=== PATIENT | male | born 1955 | race Caucasian/White ===

== ENCOUNTER 2016-08-14 11:11 | Inpatient (IN) | payer BC ==
--- NOTE | ~2016-08-14 | DS ---
Unit #: [id number] #: [id number] Patient: HOMA DELATORRE [id number] [facility]. [place], [place] [address] [id number] I MR#: [id number] NAME: HOMA DELATORRE. ROOM: 230 Age: 60 Sex: M Admission Date: 08/14/2016 : 1955 Discharge Date: 08/17/2016 Attending Physician: Lloyd Centeno III, M.D. Primary Care Physician: Godfrey Briones Jr., M.D. DISCHARGE SUMMARY ADMITTING AND FINAL DIAGNOSIS Acute near gangrenous cholecystitis with cholelithiasis. SECONDARY DIAGNOSIS None. BRIEF SUMMARY The patient is a 60-year-old white male who was admitted through the emergency room complaining of chest pain and some nausea. He was noted to be tender in the mid epigastrium/right upper quadrant and workup revealed evidence of gallstones on CT scan. Subsequently, he had a HIDA scan which revealed a nonvisualized gallbladder indicating acute cholecystitis and yesterday the patient was taken to the operating room and underwent laparoscopic cholecystectomy. He is presently less than 24 hours postop, doing very well. He had minimal out of his Ernesto-Nino drain which has been now discontinued. He is tolerating p.o. diet, ambulating well and without any significant complaints. He did have a low grade fever but now is afebrile. His laboratory values are reasonable. The plan will be to discharge the patient home in satisfactory condition. He will be keeping his wounds clean and dry, limited lifting more than 5 to 10 pounds for two weeks. On a regular home diet, on [place] for pain and Levaquin for five days. He has been given instructions on calling the office for followup appointment for ten days and also will be staying off work until then. Dictated by... Johnny Morrow Jr., M.D. NEIL/jakob TD: 08/17/2016 12:17 JOB #: [id number] Unit #: [id number] #: [id number] Patient: HOMA DELATORRE DISCHARGE SUMMARY Page 1 of 1 X Johnny Morrow MD DISCHARGE SUMMARY
--- NOTE | ~2016-08-14 | CO ---
Unit #: [id number] #: [id number] Patient: HOMA DELATORRE [id number] [address] [place], [place] [address] [id number] I MR#: [id number] NAME: HOMA DELATORRE ROOM: 230 Age: 60 Sex: M Admission Date: 08/14/2016 : 1955 Attending Physician: Lloyd Centeno III, M.D. Primary Care Physician: Godfrey Briones Jr., M.D. Consultation Date: 08/14/2016 CONSULTATION REPORT CHIEF COMPLAINT Chest pain. HISTORY OF PRESENT ILLNESS This is a 60-year-old gentleman, whom we were asked to see in consultation by the ER physicians for substernal chest pain. He describes it as having a burning quality. It started this morning. He has not had any prior episodes. It has been associated with some nausea and vomiting. PAST MEDICAL HISTORY Significant for chronic neck and back pain. PAST SURGICAL HISTORY He has had multiple neck and back procedures performed, as well as leg surgery. ALLERGIES He has allergies to penicillin. MEDICATIONS Please see med rec list for list of medications. SOCIAL HISTORY He denies any tobacco or alcohol use. FAMILY HISTORY Negative for cancers. REVIEW OF SYSTEMS Negative for fevers or jaundice and is otherwise as above. He denies any shortness of breath. PHYSICAL EXAMINATION VITAL SIGNS: Temperature is 97.8, heart rate 60, respiratory rate is 16, blood pressure is 165/88. GENERAL: He is in no acute distress. HEENT: Pupils are equal and reactive to light and accommodation. His extraocular muscles are intact. NECK: Without masses or bruits. LUNGS: Show good breath sounds bilaterally with equal air exchange. CARDIAC: Shows regular rate and rhythm without murmur. ABDOMEN: Soft, nondistended, and nontender with no organomegaly. EXTREMITIES: Without edema or cyanosis. NEUROLOGIC: He is alert and oriented. There are no focal deficits. Unit #: [id number] #: [id number] Patient: HOMA DELATORRE DIAGNOSTIC STUDIES LABORATORY RESULTS: White blood count is 20,000. LFTs were normal. IMAGING STUDIES: CT scan shows gallstones and distended gallbladder. He had cardiac enzymes that were normal x2, and a normal EKG. OVERALL IMPRESSION It is hard to say if this gentleman has biliary colic versus peptic ulcer disease. PLAN Our plan is admit, start him on proton pump inhibitor, and check a possible HIDA scan in the morning. We also discussed possible EGD to rule out gastric source of his symptoms. Further recommendations are to follow. Dictated by... Lloyd Centeno III, M.D. VCL/corrie TD: 08/15/2016 17:52 JOB #: [id number] CONSULTATION REPORT Page 1 of 1 X Lloyd Centeno III, MD CONSULTATION REPORT
--- NOTE | ~2016-08-14 | CR72 ---
[facility] A Service of [facility] & [facility] RADIOLOGY TEXT RESULTS PATIENT: HOMA DELATORRE LOCATION: [facility] : 54 UNIT #: [id number] AGE: [address]: Yamilet Gaines MD SEX: M ORDER DR: [id number] [facility] [address] [place], [place] [address] [id number] E MR#: [id number] Acc #: [id number] NAME: HOMA DELATORRE : 1955 SEX: M STUDY DATE/TIME: 08/14/2016 11:51 UNIT: [facility] ROOM: STUDY DESCRIPTION: CR Chest Single View Portable Attending Physician: Yamilet Gaines M.D. Ordering Physician: Yamilet Gaines M.D. Primary Care Physician: Godfrey Briones Jr., M.D. MEDICAL IMAGING REPORT This report is preliminary unless electronic signature is present EXAM Portable chest. INDICATION Chest pain today. COMPARISON No comparisons. FINDINGS The lungs are well expanded. No acute infiltrate. Heart size normal. Visualized osseous structures are unremarkable. IMPRESSION No active disease. Dictated by... Facundo Jimenez M.D. THIS IS AN ELECTRONICALLY VERIFIED REPORT Facundo Jimenez M.D. at 08/14/2016 6:06 PM MONIKA/matheus TD: 08/14/2016 15:44 JOB #: [id number] MEDICAL IMAGING REPORT Page 1 of 1 COPY
--- NOTE | ~2016-08-14 | NM21 ---
[facility] A Service of [facility] RADIOLOGY TEXT RESULTS PATIENT: HOMA DELATORRE LOCATION: [facility] 230- : 54 UNIT #: [id number] AGE: [address]: Lloyd Centeno III, MD SEX: M ORDER DR: [id number] [place], [place] [address] [id number] I MR#: [id number] Acc #: [id number] NAME: HOMA DELATORRE : 1955 SEX: M STUDY DATE/TIME: 08/15/2016 13:49 UNIT: [facility] ROOM: [facility] STUDY DESCRIPTION: NM Hepatobiliary W GB Attending Physician: Lloyd Centeno III, M.D. Ordering Physician: Ricky Dorsey M.D. Primary Care Physician: Godfrey Briones Jr., M.D. MEDICAL IMAGING REPORT This report is preliminary unless electronic signature is present EXAM Hepatobiliary scan INDICATIONS Nausea, vomiting, abdominal pain since yesterday. Gallstones. PROCEDURE Patient was administered 5.7 mCi technetium labeled Choletec. Imaging of the upper abdomen was performed for 120 minutes. Gallbladder stimulation was not performed secondary to presence of gallstones. CPLAN CT from 08/14/2016 FINDINGS Liver shows symmetric extraction excretion of radiotracer. Radiotracer is seen in the common duct and extending into the bowel. There is no visualization of the gallbladder by 120 minutes. IMPRESSION 1. Nonvisualization of the gallbladder by 120 minutes suggesting cystic duct obstruction. 2. There is no evidence for common duct obstruction. 3. Findings called to the patient's nurse at the time of this dictation who voiced that she would relay these findings to physicians caring for the patient. Dictated by... Lul Winn M.D. THIS IS AN ELECTRONICALLY VERIFIED REPORT Lul Winn M.D. at 08/17/2016 10:12 PM JAYMIE/fiona [facility] A Service [facility] RADIOLOGY TEXT RESULTS PATIENT: HOMA DELATORRE LOCATION: [facility] 230-01 : 54 UNIT #: [id number] AGE: [address]: Lloyd Centeno III, MD SEX: M ORDER DR: TD: 08/15/2016 17:00 JOB #: [id number] MEDICAL IMAGING REPORT Page 1 of 1 COPY
--- NOTE | ~2016-08-14 | OR ---
Unit #: [id number] #: [id number] Patient: HOMA DELATORRE [id number] [address] [place], [place] [address] [id number] I MR#: [id number] NAME: HOMA DELATORRE ROOM: 230 Date of Procedure: 08/15/2016 Admission Date: 08/14/2016 Surgeon: Ricky Dorsey M.D. : 1955 Attending Physician: Lloyd Centeno III, M.D. Primary Care Physician: Godfrey Briones Jr., M.D. OPERATIVE REPORT PREOPERATIVE DIAGNOSIS Epigastric and chest pain. POSTOPERATIVE DIAGNOSIS Epigastric and chest pain. PROCEDURES PERFORMED 1. Esophagogastroduodenoscopy. 2. Biopsy of antrum for Helicobacter pylori testing. ANESTHESIA Monitored anesthesia care. FINDINGS The patient was found to have mild gastritis, mild distal esophagitis, and a small hiatal hernia. SPECIMENS Sent to pathology. COMPLICATIONS None apparent. CONDITION The patient tolerated the procedure well. INDICATIONS FOR PROCEDURE The patient is a 60-year-old white male, who presents at this time with epigastric and chest pain. He has gallstones as well. He presents at this time for evaluation by upper endoscopy operation. DESCRIPTION OF PROCEDURE After obtaining informed consent, the patient was brought to the endoscopy suite, and after adequate monitored anesthesia care, had the endoscope placed through the mouth into the upper esophagus under direct vision. It was advanced to the second portion of the duodenum without difficulty with the lumen always in view. The duodenum was normal as was the duodenal bulb. The pylorus opened normally. There was some mild distal gastritis present, and a biopsy was obtained for Helicobacter pylori testing. On retroflexion back to the GE junction, there was a small hiatal hernia seen. No other abnormalities were found in the proximal third, middle Unit #: [id number] #: [id number] Patient: HOMA DELATORRE third, or incisura. On pulling back above the GE junction, there was no stenosis, stricture, or neoplasm seen, but there was some mild distal esophagitis. The remaining portion of the esophagus was within normal limits. Laryngeal structures were grossly normal as viewed from above. The patient went from the endoscopy suite to the recovery area in stable condition. RECOMMENDATIONS Keep n.p.o. until after HIDA scan today. Change Protonix to 40 mg p.o. daily. Dictated by... Joey Dupont/corrie TD: 08/15/2016 10:48 JOB #: [id number] OPERATIVE REPORT Page 1 of 1 X Ricky Dorsey MD X PROCEDURE OPERATIVE NOTE
--- NOTE | ~2016-08-14 | OR ---
Unit #: [id number] #: [id number] Patient: HOMA DELATORRE [id number] [address] [place], [place] [address] [id number] I MR#: [id number] NAME: HOMA DELATORRE ROOM: 230 Date of Procedure: 08/16/2016 Admission Date: 08/14/2016 Surgeon: Johnny Morrow Jr., M.D. : 1955 Attending Physician: Lloyd Centeno III, M.D. Primary Care Physician: Godfrey Briones Jr., M.D. OPERATIVE REPORT INDICATIONS FOR PROCEDURE The patient is a 60-year-old white male, who presented to the emergency room complaining of severe mid epigastric abdominal pain as well as chest pain started suddenly and he had no past history similar to this. His workup revealed evidence of an obstructed cystic duct compatible with acute cholecystitis on HIDA scan. Also, CT scan revealed evidence of gallstones. It was felt the patient has acute cholecystitis. He is brought to the operating room at this time for laparoscopic cholecystectomy. PREOPERATIVE DIAGNOSIS Acute cholecystitis. POSTOPERATIVE DIAGNOSES Acute cholecystitis, noting gangrenous cholecystitis with bilateral direct inguinal hernias. ANESTHESIA General with endotracheal intubation and 0.5% Marcaine with epinephrine locally. PROCEDURE PERFORMED Laparoscopic cholecystectomy. DESCRIPTION OF PROCEDURE The patient was positioned in supine position. After being anesthetized and intubated, he was prepped and draped in routine fashion for laparoscopic cholecystectomy. A small supraumbilical incision was made approximately a 1 cm in length. This was carried down to the fascia. The fascia in the umbilicus was lifted with a towel clip, and a Veress needle introduced in the abdomen. The abdomen was then inflated with CO2 gas. A 5-mm port was introduced into the abdomen followed by the camera. There was no evidence of any injury related to introduction of the port of the Veress needle. Brief intra-abdominal exploration was carried out. The patient was noted to have a gangrenous wrapped gallbladder with omental wrapping around it as well as bilateral direct inguinal hernias. There was no obvious perforation. Two 5-mm ports were placed laterally and 11-mm port just to the right of the upper midline. The gallbladder was then aspirated with bile being sent for C and S, the bile was clear in color. Dissection was then carried out in the triangle of Calot, cystic duct which was small only 1 to 2 mm in diameter was isolated, hemoclipped x4, and divided approximately a 1 cm from its junction with the common Unit #: [id number] #: [id number] Patient: HOMA DELATORRE duct. Cystic artery was identified, hemoclipped x3, and divided. The gallbladder was then removed from its bed with the hook cautery using a current of 20 and after it was released, it was put into an EndoCatch bag and brought out through the larger port site once the port site was extended an another centimeter. The gallbladder was very large and indurated. After it was removed, the port was replaced. Subhepatic space irrigated. There was no evidence of any significant bleeding from the gallbladder bed, but there was moderate clot there as expected with acute cholecystitis. The clips on cystic duct and cystic artery were intact with no evidence of any leak or bleeding. It was felt Ernesto-Nino drain was indicated. 10 mm Ernesto-Nino drain was placed into the subhepatic space and brought out through the lateral port site in routine fashion. After this was complete, the clips were again checked and noted to be intact on the duct and the artery and the CO2 was then expressed from the abdomen. The fascia in the larger port site was approximated with 2 separate [id number]-[id number]-[id number] 0 Vicryl sutures. The wounds were irrigated, injected with 0.5% Marcaine with epinephrine locally and after hemostasis achieved with Bovie cautery, the skin edges on all 4 wounds were approximated with stainless-steel skin clips and skin stapling device. Sterile dressings were applied externally. Estimated blood loss less than 75 mL. The patient received less than 2000 mL crystalloid solution during the procedure. Sponges and instrument counts were correct x3. There was one 10-mm Ernesto-Nino drain used in the subhepatic space as noted above and no complications. The patient was taken to the recovery room with stable vital signs in satisfactory condition. Dictated by... Johnny Morrow Jr., M.D. JMB/corrie TD: 08/17/2016 03:35 JOB #: [id number] OPERATIVE REPORT Page 1 of 1 X Johnny Morrow MD PROCEDURE OPERATIVE NOTE
--- NOTE | ~2016-08-14 | CT2 ---
[facility] A Service of [facility] RADIOLOGY TEXT RESULTS PATIENT: HOMA DELATORRE LOCATION: A 230 : 54 UNIT #: [id number] AGE: [address]: Lloyd Centeno III, MD SEX: M ORDER DR: [id number] [facility] [address] [place], [place] [address] [id number] I MR#: [id number] Acc #: [id number] NAME: HOMA DELATORRE. : 1955 SEX: M STUDY DATE/TIME: 08/14/2016 14:51 UNIT: C2A ROOM: 230 STUDY DESCRIPTION: CT Abd and Pelv W Cont Attending Physician: Lloyd Centeno III, M.D. Ordering Physician: Yamilet Gaines M.D. Primary Care Physician: Godfrey Briones Jr., M.D. MEDICAL IMAGING REPORT This report is preliminary unless electronic signature is present EXAM CT abdomen and pelvis with contrast DATE 08/14/2016 HISTORY 60-year-old male with nausea, vomiting and chest pain since this morning. Epigastric pain. COMPARISON None PROCEDURE 5 mm axial images from the lung bases through the lesser trochanters after intravenous contrast administration. Enteric contrast was not administered. Sagittal and coronal reformatted images were obtained. This CT exam was performed with one or more of the following radiation dose reduction techniques: Automatic exposure control, adjustment of mA and/or kV according to patient size, and iterative reconstruction. FINDINGS ABDOMEN FINDINGS: Some gallstones are present. The gallbladder is mildly distended but no pericholecystic inflammatory changes are identified. No abnormal intrahepatic or extrahepatic biliary ductal dilation is seen. Liver, spleen, adrenals and kidneys are within normal limits. Pancreas is mildly atrophic. Limited evaluation of bowel due to lack of enteric contrast but no focal bowel inflammation is seen. Appendix is not visualized but no pericecal inflammation is evident. Tiny umbilical hernia contains only fat. PELVIS FINDINGS: Prostate gland is enlarged with significant nodular protrusion into the urinary bladder base. This nodular protrusion into [facility] A Service of [facility] RADIOLOGY TEXT RESULTS PATIENT: HOMA DELATORRE LOCATION: [place] [address] : 54 UNIT #: [id number] AGE: [address]: Lloyd Centeno III, MD SEX: M ORDER DR: the base of the urinary bladder measures at least 3.5 cm [id number]. The rectum is normal. No pelvic adenopathy or free fluid is seen. No acute osseous abnormalities are identified. Suspected severe canal stenosis at L4-5 on the basis of degenerative change. 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 IMPRESSION 1. No acute findings within the abdomen or pelvis. 2. The appendix is not visualized but no pericecal inflammation is seen. 3. Marked prostatic enlargement with a large 3.5 cm nodular protrusion into the urinary bladder base. 4. Gallstones are present. The gallbladder is mildly distended but does not appear appreciably inflamed on the current examination. No biliary dilation is evident. 5. Mild pancreatic atrophy. 6. Suspected severe canal stenosis at L4-5 on the basis of degenerative change. 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 Dictated by... Babita Crenshaw M.D. THIS IS AN ELECTRONICALLY VERIFIED REPORT Babita Crenshaw M.D. at 08/15/2016 10:40 AM MATTHEW/sebas TD: 08/14/2016 20:19 JOB #: [id number] MEDICAL IMAGING REPORT Page 1 of 1 COPY
--- NOTE | ~2016-08-14 | EKG ---
PATIENT: HOMA DELATORRE UNIT #: [id number] Ventricular Rate: 62 BPM Atrial Rate: 62 BPM P-R Interval: 164 ms QRS Duration: 90 ms Q-T Interval: 416 ms QTC Calculation(Bezet): 422 ms P [place]: 59 degrees Calculated R [place]: 27 degrees Calculated T [place]: 43 degrees Diagnosis Line: Normal sinus rhythm Diagnosis Line: Normal ECG Diagnosis Line: No previous ECGs available Diagnosis Line: Confirmed by MICHELLE PA MD ([id number]) on Diagnosis Line: 08/14/2016 10:45:11 PM INTERPRETING MD: ANASTASIA
[2016-08-14 12:27] LABS: POC - CKMB 1.1 ng/mL (0.0-7.9); POC - TROPONIN <0.05 ng/mL (<=0.05)
[2016-08-14 12:30] LABS: BASOPHIL% 0.3 % (0-2.5); EOSINOPHIL# 0.1 X10e3 (0-0.7); EOSINOPHIL% 0.5 % (0.0-7.0); HEMOGLOBIN 13.6 gm/dL (13.0-16.0); LYMPHOCYTE# 0.9 X10e3 (1.0-3.5); LYMPHOCYTE% 8.1 % (17.0-45.0); MEAN CELL VOLUME 89.4 FL (83-96); MEAN CORPUSCULAR HEMOGLOBIN 29.7 PG (28-34); MEAN CORPUSCULAR HGB CONC 33.2 g/dL (30-36); MEAN PLATELET VOLUME 8.1 FL (6.5-11.5); MONOCYTE# 0.4 X10e3 (0-1.0); MONOCYTE% 3.7 % (3.0-12.0); NEUTROPHIL% 87.4 % (40-75); PLATELET COUNT 214 X10e3 (140-420); RED BLOOD COUNT 4.59 X10e (3.90-5.60); RED CELL DISTRIBUTION WIDTH 13.5 % (11.0-15.5); WHITE BLOOD COUNT 11.5 X10e3 (4.0-10.5)
[2016-08-14 12:37] LABS: DIFF IND NO
[2016-08-14 12:51] LABS: AMYLASE 23 U/L (0-46); LIPASE 20 U/L (22-51)
[2016-08-14 12:52] LABS: ALCOHOL BLOOD <5 mg/dL (0)
[2016-08-14 13:06] LABS: BILIRUBIN, DIRECT 0.1 mg/dL (0.0-0.2); BILIRUBIN,INDIRECT 0.6 mg/dL (0.0-0.9); BILIRUBIN,TOTAL 0.7 mg/dL (0.2-2.0); BUN/CREATININE RATIO 13.33; CALCIUM SERUM 8.7 mg/dL (8.4-10.2); CREATININE SERUM 0.9 mg/dL (0.6-1.4); GLOM FILT RATE Estimated 91.9 mL/min (>60); POTASSIUM 3.6 mmol/L (3.5-5.1); PROTEIN TOTAL SERUM 6.8 g/dL (6.0-8.3)
[2016-08-14 13:49] LABS: URINE SOURCE CLEAN CATCH
[2016-08-14 13:54] LABS: POC - CKMB <1.0 ng/mL (0.0-7.9); POC - TROPONIN <0.05 ng/mL (<=0.05)
[2016-08-14 13:58] LABS: URINE APPEARANCE CLEAR; URINE BILIRUBIN NEG (NEG); URINE BLOOD 2+ (NEG); URINE COLOR YELLOW; URINE GLUCOSE NEG (NEG); URINE KETONE NEG (NEG); URINE LEUKOCYTE ESTERASE NEG (NEG); URINE NITRATE NEG (NEG); URINE PROTEIN NEG (NEG); URINE SPECIFIC GRAVITY 1.018 (1.003-1.035); URINE UROBILINOGEN 0.2 MG/DL (NEG)
[2016-08-14 14:01] LABS: CULTURE INDICATED? NO; URBCS1 AUWI 25-50 /[HPF] (0-2); URINE BACTERIA AUWI NEG (NEGATIVE); URINE SQUAMOUS EPITHELIAL CELL NONE SEEN /[HPF]; UWBCS1 AUWI 0-2 (0-5)
[2016-08-14] MEDS ORDERED: PATIENT'S PHARMACY (14:35)
[2016-08-14] MEDS ORDERED: NEURONTIN600 MG PO (14:36)
[2016-08-14] MEDS ORDERED: IMITREX PO (14:37)
[2016-08-14] MEDS ORDERED: LIORESAL10 MG PO (14:38)
[2016-08-14] MEDS ORDERED: OXYCONTIN20 MG PO (14:39)
[2016-08-14] MEDS ORDERED: AMITRYPTYLINE PO (14:40)
[2016-08-15 05:31] LABS: BASOPHIL% 0.1 % (0-2.5); HEMATOCRIT 40.3 % (38.0-50.0); HEMOGLOBIN 13.6 gm/dL (13.0-16.0); LYMPHOCYTE# 1.2 X10e3 (1.0-3.5); LYMPHOCYTE% 6.4 % (17.0-45.0); MEAN CELL VOLUME 89.9 FL (83-96); MEAN CORPUSCULAR HEMOGLOBIN 30.2 PG (28-34); MEAN CORPUSCULAR HGB CONC 33.6 g/dL (30-36); MEAN PLATELET VOLUME 8.5 FL (6.5-11.5); MONOCYTE# 1.5 X10e3 (0-1.0); MONOCYTE% 8.1 % (3.0-12.0); NEUTROPHIL# 15.3 X10e3 (1.5-7.1); NEUTROPHIL% 85.4 % (40-75); PLATELET COUNT 196 X10e3 (140-420); RED BLOOD COUNT 4.49 X10e (3.90-5.60); RED CELL DISTRIBUTION WIDTH 13.5 % (11.0-15.5); WHITE BLOOD COUNT 17.9 X10e3 (4.0-10.5)
[2016-08-15 05:32] LABS: DIFF IND YES
[2016-08-15 05:48] LABS: PLATELET ESTIMATE NORMAL (NORMAL); RBC NORMAL YES
[2016-08-15 06:07] LABS: ALBUMIN SERUM 3.5 g/dL (3.5-5.0); BILIRUBIN,TOTAL 0.9 mg/dL (0.2-2.0); BUN/CREATININE RATIO 11.11; CALCIUM SERUM 8.3 mg/dL (8.4-10.2); CREATININE SERUM 0.9 mg/dL (0.6-1.4); GLOM FILT RATE Estimated 91.9 mL/min (>60); POTASSIUM 3.7 mmol/L (3.5-5.1); PROTEIN TOTAL SERUM 6.2 g/dL (6.0-8.3)
[2016-08-17 05:22] LABS: HEMATOCRIT 36.2 % (38.0-50.0); MEAN CELL VOLUME 90.1 FL (83-96); MEAN CORPUSCULAR HEMOGLOBIN 29.9 PG (28-34); MEAN CORPUSCULAR HGB CONC 33.2 g/dL (30-36); MEAN PLATELET VOLUME 8.2 FL (6.5-11.5); RED BLOOD COUNT 4.02 X10e (3.90-5.60); RED CELL DISTRIBUTION WIDTH 13.6 % (11.0-15.5); WHITE BLOOD COUNT 13.2 X10e3 (4.0-10.5)
[2016-08-17 05:47] LABS: ALBUMIN SERUM 2.7 g/dL (3.5-5.0); BILIRUBIN,TOTAL 0.7 mg/dL (0.2-2.0); BUN/CREATININE RATIO 11.25; CALCIUM SERUM 7.8 mg/dL (8.4-10.2); CREATININE SERUM 0.8 mg/dL (0.6-1.4); GLOM FILT RATE Estimated 96.5 mL/min (>60); POTASSIUM 3.5 mmol/L (3.5-5.1); PROTEIN TOTAL SERUM 5.7 g/dL (6.0-8.3)
[2016-08-17] MEDS ORDERED: KEFLEX500 MG PO (09:19)
[2016-08-17] MEDS ORDERED: HYDROCODON-ACE1 EAC5 PO (09:20)
== END 2016-08-17 10:05 | disposition home or self-care (01) | DRG 419 ==
LOC: CED 11:11 → CEDOF 17:00 → C2A 17:00 → CED 17:00 → CEDOF 17:09 → C2A 19:53 → CEDOF 19:53 → C2A 08-17 10:05
PROVIDERS: Student in an Organized Health Care Education/Training Program; Surgery
PROC: 0DB68ZX Excision of Stomach, Via Natural or Artificial Opening Endoscopic, Diagnostic (ICD-10-PCS; 2016-08-15 09:45)
PROC: 0FT44ZZ Resection of Gallbladder, Percutaneous Endoscopic Approach (ICD-10-PCS; principal; 2016-08-16 09:30)
DX: K80.12 Calculus of gallbladder with acute and chronic cholecystitis without obstruction (principal); K20.9 Esophagitis, unspecified; K40.20 Bilateral inguinal hernia, without obstruction or gangrene, not specified as recurrent; Z88.0 Allergy status to penicillin; K29.70 Gastritis, unspecified, without bleeding; K44.9 Diaphragmatic hernia without obstruction or gangrene
CPT/HCPCS: 36415; 71010; 74177; 78226; 80048; 80053; 80076; 81003; 82150; 82553; 83690; 84484; 85025; 85027; 87070; 87077; 87205; 88304; 93005; 94010; 96361; 96374; 96375; 99285; A9537; C9113; G0480; J1100; J1170; J2250; J2270; J2405; J2550; J2710; J3010; Q9967